=== PATIENT | male | born 1980 | race African-American/Black ===

== ENCOUNTER 2018-02-21 17:25 | Emergency (ER) | payer OTHER ==
[~2018-02-21] VITALS: Ht 190.5 cm; Wt 106.6 kg
[~2018-02-21 17:25] MED LIST: AMLODIPINE BESY10 MG PO; AUGMENTIN 875875 MG PO; BP MED; CHLORTHALIDONE25 MG PO; CLONAZEPAM 1 MG1 M1 PO; EFFEXOR XR37.5 MG PO; FLEXERIL PO; FLONASE 0.05%50 MCG NASAL; LISINOPRIL20 MG PO; MEDROLDOSEPACK PO; NOHOMEMEDICATIONS; PREDNISONE 20 M20 MG PO; ULTRAM 50MG TAB50 MG PO; XANAX 0.5 MG0.5 M1 PO
[2018-02-21] MEDS ORDERED: PREDNISONE 20 M20 M1 PO (18:25)
[2018-02-21] MEDS ORDERED: PEPCID40 MG PO (18:25)
[2018-02-21] MEDS ORDERED: ZYRTEC 10 MG TA10 MG PO (18:25)
[2018-02-21 18:30] VITALS: BP 122/78
== END 2018-02-21 18:31 | disposition home or self-care (01) ==
LOC: M.ERS 17:25
DX: I10 Essential (primary) hypertension (principal); F41.9 Anxiety disorder, unspecified; T78.3XXA Angioneurotic edema, initial encounter